=== PATIENT | male | born 1960 | race Caucasian/White ===

== ENCOUNTER 2016-09-17 08:08 | Emergency (ER) | payer OTHER ==
[~2016-09-17] VITALS: Ht 167.6 cm; Wt 73.0 kg
[2016-09-17] MEDS ORDERED: BRILINTA90 M1 PO (08:19)
[2016-09-17] MEDS ORDERED: CRESTOR20 M2 PO (08:20)
[2016-09-17] MEDS ORDERED: ZETIA10 M1 PO (08:20)
--- NOTE | 2016-09-17 09:30 | ED UPPER/LOWER EXTREMITY COMPL ---
History of Present Illness General Chief Complaint: General Adult Stated Complaint: SUG LAST WEEK [facility] ARM SWELLING Source: patient Exam Limitations: no limitations Vital Signs & Intake/Output Vital Signs & Intake/Output Vital Signs Date Time Temp Pulse Resp B/P B/P Pulse O2 O2 Flow FiO2 Mean Ox Delivery Rate 09/17 1509 97.0 80 20 117/72 97 Room Air 09/17 1304 98.9 88 18 118/58 98 Room Air 09/17 1110 99.9 83 18 131/68 98 Room Air 09/17 0812 100.0 109 18 142/84 99 Room Air Room Air Allergies Coded Allergies: NO KNOWN ALLERGIES (02/27/12) Reconcile Medications Ezetimibe (Zetia) 10 MG TABLET 1 TAB PO DAILY CHOLESTEROL (Reported) Rosuvastatin Calcium (Crestor) 20 MG TABLET 1 TAB PO DAILY CHOLESTEROL ( Reported) Ticagrelor (Brilinta) 90 MG TABLET 1 TAB PO BID THINNER (Reported) Triage Note: TRIAGE: 55 Y/O MALE PRESENTS S/P CARDIAC CATH ON 09/13/2016 AT [facility]. REPORTS AFTER CATH PROCEDURE, NOW EXPEREINCING 1010 PAIN. CONTACTED [facility] AND THEY INSTRUCTED HIM TO SEEK MEDICAL ATTENTION AT A WALK IN OR ED. PATIENT REPORTS THROBBING PAIN AT SITE OF RIGHT WRIST. Triage Nurses Notes Reviewed? yes Onset: Gradual Duration: day(s):, constant, continues in ED, getting worse Severity: severe HPI: Patient presents for evaluation of severe right forearm wrist and hand pain with swelling status post cardiac catheterization with 3 cardiac stents placed at [facility] on Monday. Patient is postop day #4 and states that he was doing well for the first 2 days. He states beginning night he began having worsening pain and swelling. The pain has been constant severe and worse with movement. He states he is now unable to make a fist with his right hand. Past History Travel History Traveled to [place] past 21 day No Medical History Any Pertinent Medical History? see below for history Neurological: NONE EENT: NONE Cardiovascular: hyperlipidemia, CARDIAC BLOCKAGES Surgical History Surgical History: Cardiac catheterization and stent placement Psychosocial History What is your primary language Icelandic Tobacco Use: Never used ETOH Use: occasional use Illicit Drug Use: denies illicit drug use Family History Hx Contributory? No Review of Systems Review of Systems Constitutional: Reports: no symptoms. EENTM: Reports: no symptoms. Respiratory: Reports: no symptoms. Cardiovascular: Reports: no symptoms. Gastrointestinal/Abdominal: Reports: no symptoms. Genitourinary: Reports: no symptoms. Musculoskeletal: Reports: no symptoms. Skin: Reports: see HPI. Neurological/Psychological: Reports: no symptoms. Hematologic/Endocrine: Reports: no symptoms. Immunological: Reports: no symptoms. All Other Systems: Reviewed and Negative Physical Exam Physical Exam General Appearance: SEE BELOW Comments: Gen.: Well-nourished, well-developed, no acute respiratory distress. Head: Normocephalic, atraumatic. Eyes: Normal inspection bilaterally Ears: Normal inspection bilaterally Nose: Normal inspection, nasal cannula in place Throat/mouth : Moist mucosa Neck: Supple, full range of motion, no goiter Heart: Regular rate and rhythm Lungs: Quiet respirations Back: Normal range of motion Extremities: Right shoulder: Normal examination, right arm: Normal examination, right forearm/wrist: Diffuse swelling with pain with range of motion of the right wrist. Puncture wound over the right radial artery consistent with catheterization state appears unremarkable, normal right radial and brachial pulses. Right hand: Diffuse swelling, sensation to light touch intact, capillary refill 3 seconds, the right hand shows normal color. Right hand is warm to the touch. Neurologic: Cranial nerves grossly intact, speech is clear Skin: warm and dry Psychiatric: Calm, cooperative, no apparent delusions or hallucinations Progress Differential Diagnosis: dvt, ARTERIAL OCCLUSION, POSTOPERATIVE CHANGES Plan of Care: Orders Procedure Date/time Status BASIC METABOLIC PANEL 09/17 0959 Complete Laboratory Tests 09/17/16 1046: Anion Gap 14, Estimated GFR > 60, BUN/Creatinine Ratio 23.3, Glucose 91, Calcium 9.6 Comments: 09/17/2016 2:25:30 PM I was able to obtain a verbal report from the radiologist regarding the CAT scan angiogram. It is a somewhat limited study but no apparent findings. I have updated Juan on test results. I'm attempting to contact his maritime officer. 09/17/2016 3:11:41 PM patient's case discussed with Dr. Monroe who feels that the swelling the patient is currently suffering is a bit unusual after this type of procedure. Given the low-grade fever and the absence of any substantial findings on the emergency department workup, I will prescribe an antibiotic and asked that he follow-up with his sex crimes detective on Monday. Departure Departure Disposition: HOME OR SELF CARE Condition: Stable Clinical Impression Primary Impression: Swelling of right upper extremity Referrals: KULWANT MURO,VIKY Barr (PCP/Family) Additional Instructions: Elevate the arm 2-3 times per day to help reduce swelling. Noti as needed for pain. Augmentin as prescribed to prevent infection. Follow-up with your sex crimes detective on Monday for reevaluation. Seek emergency care if any concerns or sudden worsening. Please note that there might be incidental findings in your evaluation that are unrelated to the current emergency department visit. Please notify your primary care doctor about this emergency department visit in order to obtain and review all of the testing performed so that these incidental findings can be monitored as needed. If you had an x-ray performed, please understand that some fractures may not be seen on the initial set of x-rays. If your symptoms persist you might need a repeat set of x-rays to check for such a fracture. If you had a laceration evaluated, please understand that foreign bodies such as glass or wood may not be visible to the naked eye or on plain x-rays. If the wound becomes red, swollen, increasingly more painful or if there is any drainage from the wound, please have it reevaluated by a physician for the possibility of a retained foreign body. Thank you for choosing the [facility] Emergency Department for your care. It was a pleasure to serve you today. Tyson Ly M.D. [facility] Departure Forms: Customer Survey General Discharge Information Prescriptions: Current Visit Scripts Hydrocodone/Acetaminophen (Noti 5-325 Tablet) 1-2 TAB PO Q6P PRN arm pain #20 TAB Augmentin (Augmentin 500-125 Tablet) 1 TAB PO TID #21 TAB
--- NOTE | 2016-09-17 10:47 | ULTRASOUND REPORT ---
EXAMINATION: US TRIPLEX UPPER EXTREMITY, RIGHT CLINICAL INFORMATION: 55-year-old male presented with right upper extremity pain, swelling. Status post cardiac catheter. COMPARISON: None TECHNIQUE: Color-flow triplex imaging with spectral analysis and compression Doppler were performed on the right upper extremity. FINDINGS: The right upper extremity venous tree appear widely patent. The right internal jugular vein is also patent. IMPRESSION: No sonographic evidence of venous thrombosis at right upper extremity.
--- NOTE | 2016-09-17 11:03 | RADIOLOGY REPORT ---
EXAMINATION: XR CHEST CLINICAL INFORMATION: Arm pain. Status post cardiac catheter and stenting. COMPARISON: Chest done on 02/27/2012. TECHNIQUE: 2 views, 3 images of the chest were obtained. FINDINGS: Both lung olmedo are symmetrically expanded and appear clear. The cardiac mediastinal silhouette is within normal limits. There is no pleural effusion present. Previously identified linear airspace disease at right lung base is no longer visualized. No other significant change. IMPRESSION: No acute cardiopulmonary disease.
[2016-09-17 15:09] VITALS: BP 117/72
--- NOTE | 2016-09-17 15:14 | CT SCAN REPORT ---
EXAMINATION: CT ANGIOGRAM UPPER EXTREMITY, RIGHT CLINICAL INFORMATION: Right forearm swelling status post cardiac catheterization 4 days ago with question of arterial occlusion. COMPARISON: None TECHNIQUE: Volume acquisition CT was performed both with and without IV contrast. A total of 95 mL of Optiray 320 was utilized for this study. Additional 2-D coronal and sagittal reformatted images and axial 3-D maximum intensity projection MIP images are generated on the CT workstation. DLP: 973.8 mGy-cm FINDINGS: Arterial Findings: The visualized portions of the thoracic aortic arch and descending thoracic aorta and abdominal aorta are unremarkable aside from some atherosclerotic calcifications in the infrarenal abdominal aorta. There are single renal arteries present bilaterally which are patent. The celiac, SMA and JAMIE are patent. There is a normal 3-vessel arch and the great vessels are widely patent. The innominate artery, left carotid artery, subclavian artery, axillary artery and brachial artery are all widely patent. The brachial bifurcation is patent. Opacification of radial and ulnar arteries is only moderate and there is some artifact present from arm positioning. These vessels, however, do appear patent into the hand. The interosseous artery is very faintly opacified. Nonvascular Findings: No lung masses are seen in the visualized lungs. The pleura of the right lung appears normal. The partially visualized abdominal structures are unremarkable. A 7 mm cyst is noted in the liver on the right. Degenerative changes are present in the spine. No soft tissue mass, hematoma or fluid collection is seen in the arm. IMPRESSION: No evidence of macrovascular compromise is seen in the right arm. These results were discussed with Dr. Tyson Ly immediately after the exam.
[2016-09-17] MEDS ORDERED: NORCO 5-325 TA1 EACH PO (15:25)
[2016-09-17] MEDS ORDERED: AUGMENTIN 500-1 EACH PO (15:25)
== END 2016-09-17 15:44 ==
LOC: ERH 08:08
DX: M79.89 Other specified soft tissue disorders (principal)
CPT/HCPCS: 96372